=== PATIENT | female | born 1985 | race Caucasian/White ===

== ENCOUNTER 2021-01-23 10:23 | Emergency (ER) | payer OTHER ==
[~2021-01-23] VITALS: Ht 165.1 cm; Wt 63.5 kg
--- NOTE | 2021-01-23 10:42 | NUR ---
THE PATIENT IS ALERT AND ORIENTED X4. DENIES CHANGE IN VISION.
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
--- NOTE | 2021-01-23 11:26 | NUR ---
URINE COLLECTED AND SENT TO THE LAB
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
[2021-01-23] MEDS ORDERED: ACET-2605 PO (12:22)
[2021-01-23] MEDS ORDERED: IBUP-1957 PO (12:22)
--- NOTE | 2021-01-23 12:32 | NUR ---
Patient discharged to home in stable condition. Written and verbal after care instructions given. Patient verbalizes understanding of instruction.
[2021-01-23 12:33] VITALS: BP 125/86
== END 2021-01-23 12:33 | disposition home or self-care (01) ==
LOC: ER 10:27
DX: S09.90XA Unspecified injury of head, initial encounter (principal); Z59.00 Homelessness unspecified; Y04.0XXA Assault by unarmed brawl or fight, initial encounter; Y93.89 Activity, other specified; Y92.89 Other specified places as the place of occurrence of the external cause; Y99.8 Other external cause status
CPT/HCPCS: 70450-TC; 84703-TC